=== PATIENT | female | born 1960 | race American Indian/Alaskan Native ===

== ENCOUNTER 2016-04-26 00:13 | Emergency (ER) | payer OTHER ==
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
[2016-04-26 04:42] VITALS: BP 124/76
--- NOTE | 2016-04-26 07:02 | Emergency Department Report ---
HPI - General Chief Complaint: Fall Time Seen by Provider: 04/26/16 06:49 - HPI HPI: Chief complaint: Fall, headache pelvic pain HPI: Patient states she fell down stairs at home. The back of her head right elbow and her coccyx. No loss of consciousness. Vomited times one on Friday. Patient has had a headache intermittently since then. Patient states sometimes she has exertional shortness of breath but none at the moment. Patient has no chest trauma or pain. Mode of arrival: private car Source: Patient Began: Fall occurred on Friday pain is intermittent Duration: 2 days Context: See above Quality: Sore Severity: 8 out of 10 Improved with: Nothing Worsened with: Palpation Associated signs and symptoms: Bruising to the sacral area ED Past Medical Hx - Past Medical History Previous Medical History?: Yes Hx Hypertension: Yes - Surgical History Past Surgical History?: No - Social History Smoking Status: Never Smoker - Medications Home Medications: Home Medications Medication Instructions Recorded Confirmed Last Taken Type Hydrochlorothiazide 25 mg PO DAILY 01/30/16 01/30/16 01/28/16 History Lisinopril 20 mg PO DAILY 01/30/16 01/30/16 01/28/16 History traMADol [Ultram 50 MG tab] 50 mg PO Q6HR PRN #14 tablet 04/26/16 Unknown Rx ED Review of Systems ROS: Stated complaint: FALL Other details as noted in HPI ROS Constitutional: No fever ENT: No uri symptoms Cardiovascular: No chest pain Respiratory: Exertional shortness of breath patient is a smoker. Nonproductive cough. No wheezing GI: No diarrhea : No dysuria frequency or urgency, Skin: No rash Neuro: No focal weakness or numbness Psych: No depression Phill/lymph: No edema Physical Exam - Physical Exam Vital Signs: Vital Signs 04/26/16 04/26/16 00:38 04:42 Temperature 98.4 F Pulse Rate 89 86 Respiratory 18 17 Rate Blood Pressure 150/83 Blood Pressure 124/76 [Left] O2 Sat by Pulse 93 96 Oximetry Physical Exam: GENERAL: The patient is well-developed well-nourished . HEENT: Normocephalic. Atraumatic. Extraocular motions are intact. Patient has moist mucous membranes. NECK: Supple. No meningitic signs are noted. There is no adenopathy noted. CHEST/LUNGS: Clear to auscultation. There is no respiratory distress noted. HEART/CARDIOVASCULAR: Regular. There is no tachycardia. There is no gallop rub or murmur. ABDOMEN: Abdomen is soft, nontender. Patient has normal bowel sounds. There is no abdominal distention. SKIN: There is no rash. There is no edema. There is no diaphoresis. NEURO: The patient is awake, alert, and oriented. The patient is cooperative. The patient has no focal neurologic deficits. The patient has normal speech. MUSCULOSKELETAL: Patient has a bruise to her sacral area. Minimally tender. Patient's right elbow is slightly tender with full range of motion without pain and no swelling. Neurovascular intact. Neck is nontender. ED Course Vital Signs 04/26/16 04/26/16 00:38 04:42 Temperature 98.4 F Pulse Rate 89 86 Respiratory 18 17 Rate Blood Pressure 150/83 Blood Pressure 124/76 [Left] O2 Sat by Pulse 93 96 Oximetry ED Medical Decision Making - Radiology Data Radiology results: report reviewed (CT of the head within normal limits.) interpreted by me: Pelvic x-ray shows no acute process Critical care attestation.: If time is entered above; I have spent that time in minutes in the direct care of this critically ill patient, excluding procedure time. ED Disposition Clinical Impression: Minor head injury Qualifiers: Encounter type: initial encounter Qualified Code(s): S00.90XA - Unspecified superficial injury of unspecified part of head, initial encounter Contusion Qualifiers: Encounter type: initial encounter Contusion area: lower back Qualified Code(s) : S30.0XXA - Contusion of lower back and pelvis, initial encounter Disposition: DISCHARGED TO HOME OR SELFCARE Is pt being admited?: No Does the pt Need Aspirin: No Condition: Stable Instructions: Minor Head Injury (ED), Contusion in Adults (ED) Prescriptions: traMADol [Ultram 50 MG tab] 50 mg PO Q6HR PRN #14 tablet PRN Reason: Pain Referrals: PRIMARY CARE,MD [Primary Care Provider] - 3-5 Days Time of Disposition: 07:34
--- NOTE | 2016-04-26 07:56 | XRay Report ---
PELVIS RADIOGRAPH INDICATION: Fall, pelvic pain. COMPARISON: None similar. FINDINGS: Single, frontal pelvic radiograph demonstrates intact bones, including SI and hip joints. Bilateral acetabular prominence/spurring. Mild lower lumbar degenerative changes also suspected. Nonobstructive bowel gas pattern. Osteopenia not excluded. CONCLUSION: No acute pelvic radiographic abnormality with few degenerative changes noted, as described. Thank you for the opportunity to participate in this patient's care.
== END 2016-04-26 07:44 | disposition home or self-care (01) ==
LOC: ED 00:13
DX: S00.90XA Unspecified superficial injury of unspecified part of head, initial encounter (principal); S30.0XXA Contusion of lower back and pelvis, initial encounter; I10 Essential (primary) hypertension; W10.9XXA Fall (on) (from) unspecified stairs and steps, initial encounter; Y93.89 Activity, other specified; Y99.9 Unspecified external cause status; Y92.009 Unspecified place in unspecified non-institutional (private) residence as the place of occurrence of the external cause
CPT/HCPCS: 70450; 72170